=== PATIENT | male | born 1965 | race Caucasian/White ===

== ENCOUNTER → 2017-11-10 | Outpatient (CLI) | payer OTHER | LOC: CIMAGING 12:19 | PROVIDERS: ATTEND Family Medicine | DX: R01.1 Cardiac murmur, unspecified (principal); R05 Cough | CPT/HCPCS: 71046-PO ==

== ENCOUNTER → 2017-12-05 | Day surgery (SDC) | payer OTHER ==
[~2017-12-05] MED LIST: ASPIRIN EC 325 MG TAB PO ONE; ATROPINE SULFATE 1 MG/10 ML SYR ONE; DIAZEPAM 5 MG TAB ONE; ETOMIDATE 40 MG/20 ML INJ ONE; FAMOTIDINE 20 MG TAB ONE; IOPAMIDOL (ISOVUE-370) 150 ML BTL IV ONE; LIDOCAINE 1% 300 MG/30 ML SDV ONE; MIDAZOLAM 2 MG/2 ML VIAL ONE; diphenhydrAMINE 25 MG CAP PO ONE; fentaNYL 100 MCG/2 ML INJ ONE
[2017-12-06 00:36] LABS: INR 1.1 (0.83-1.16); PLATELET COUNT 215 10^3/uL (150-400); PROTIME(PATIENT) 14.4 SEC (12.0-15.0)
--- NOTE | 2017-12-06 10:01 | PDDXCAT ---
Diagnostic Cath Note - . Date: 12/06/17 Catering Associate: Eron Indication: other (Shortness of breath, diagnostic cath for severe MR) - Procedure Access: right groin Procedure: left heart catheterization, coronary angiography, left ventriculogram , right heart catheterization - Materials Left Heart Cath size: 6F Left Heart Cath materials: standard multipack (JL4, JR4, pigtail) Right Heart Cath size: 7F Right Heart Cath materials: PWP catheter - Findings-Left Heart Catheterization LM: LM: LM is 8 mm in size. It trifurcates into an LAD, Ramus, and Circumflex system. SUSANA III flow throughout. LAD: LAD: The LAD is 3 mm in size. There is no evidence of flow-limiting obstruction. There is a 30% lesion at the ostium and proximal portion of the second diagonal. SUSANA III flow. LCX: Circumflex: The LCX is 3 mm in size. There is a 30-40% ostial stenosis. RCA: The RCA is dominant. It gives rise to the PDA and PLV. SUSANA III flow throughout. Ramus: The ramus is 3 mm in size and free of flow limiting disease. EDP: LVEDP is 32 mmHg LVEF: EF is 60% Wall motion: The patients ejection fraction is normal at 60%. The LV gram shows evidence of mitral valve leaflet prolapse and severe MR under pressurized injection. - Findings-Right Heart Catheterization RA: Mean 8 mmHg RV: Pressure: 50/6, End diastolic pressure 17mmHg PA: Pressure: 54/20, Saturation 75.9% PAOP: Wedge pressure 23mmHg with V waves AO: Saturation: 96.2% CO: 7.02 L/min CI: 3.30 L/min/m2 Complications: NONE. Estimated blood loss: <50ml Closure method: Angioseal Assessment: The patient has pulmonary hypertension with evidence of mitral valve leaflet prolapse and severe MR. There is no evidence of flow limiting obstruction, dissection, or thrombus of the coronary circulation. Plan: The patient has a consultation with Dr. Victor to undergo mitral valve repair. The timing of the operation is complicated by the fact that his daughter is getting December 30 and he would like to avoid an operation before that time. In the interim we should restrict his activity. He should report shortness of breath, near syncope, syncope, or other clinical symptoms of concern. Intervention: NONE.
== END | disposition home or self-care (01) ==
LOC: FCATH 09:13
PROVIDERS: ATTEND Internal Medicine Cardiovascular Disease
PROC: B2151ZZ Fluoroscopy of Left Heart using Low Osmolar Contrast (ICD-10-PCS; principal; 2017-12-05)
PROC: B2111ZZ Fluoroscopy of Multiple Coronary Arteries using Low Osmolar Contrast (ICD-10-PCS; principal; 2017-12-05)
PROC: 4A023N7 Measurement of Cardiac Sampling and Pressure, Left Heart, Percutaneous Approach (ICD-10-PCS; principal; 2017-12-05)
DX: I34.0 Nonrheumatic mitral (valve) insufficiency (principal); I27.20 Pulmonary hypertension, unspecified
CPT/HCPCS: C1760; J0461; J1644; J2250; J3010; Q9967

== ENCOUNTER → 2018-01-09 | Outpatient (CLI) | payer OTHER ==
[~2018-01-09] MED LIST changes: -ASPIRIN EC 325 MG TAB PO ONE; -ATROPINE SULFATE 1 MG/10 ML SYR ONE; -DIAZEPAM 5 MG TAB ONE; -ETOMIDATE 40 MG/20 ML INJ ONE; -FAMOTIDINE 20 MG TAB ONE; +IOPAMIDOL (ISOVUE 370) 100 ML BTL IV ONE; -IOPAMIDOL (ISOVUE-370) 150 ML BTL IV ONE; -LIDOCAINE 1% 300 MG/30 ML SDV ONE; -MIDAZOLAM 2 MG/2 ML VIAL ONE; -diphenhydrAMINE 25 MG CAP PO ONE; -fentaNYL 100 MCG/2 ML INJ ONE
== END ==
LOC: CIMAGING 09:20
PROVIDERS: ATTEND Thoracic Surgery (Cardiothoracic Vascular Surgery)
DX: I34.0 Nonrheumatic mitral (valve) insufficiency (principal)
CPT/HCPCS: 71275-PO; Q9967

== ENCOUNTER → 2018-03-20 | Outpatient (CLI) | payer OTHER | LOC: FIMAGING 10:34 | PROVIDERS: ATTEND Thoracic Surgery (Cardiothoracic Vascular Surgery) | DX: Z98.890 Other specified postprocedural states (principal); Z95.2 Presence of prosthetic heart valve ==

== ENCOUNTER → 2018-06-14 | Outpatient (CLI) | payer OTHER | LOC: CIMAGING 16:35 | PROVIDERS: ATTEND Internal Medicine Nephrology | DX: N18.3 Chronic kidney disease, stage 3 (moderate) (principal) | CPT/HCPCS: 76770-PO ==